=== PATIENT | female | born 1990 | race Caucasian/White ===

== ENCOUNTER 2022-08-24 14:12 | Emergency (ER) | payer OTHER ==
[~2022-08-24] VITALS: Ht 157.5 cm; Wt 69.9 kg
[~2022-08-24 14:12] MED LIST: ACET-503 PO; AMOX500C25 PO
[2022-08-24 14:26] VITALS: BP 132/75
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
[2022-08-24] MEDS ORDERED: ACETAMINOPHEN EXTRA STRENGTH 500 MG TAB PO ONE (14:55)
[2022-08-24] MEDS ORDERED: DICL100G5 TP (15:56)
[2022-08-24] MEDS ORDERED: ACET-10509 PO (15:56)
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
--- NOTE | 2022-08-24 16:16 | NUR ---
PT RETURNED FROM CT VIA WHEELCHAIR
[2022-08-24] MEDS ORDERED: AMOX200P9 PO (17:06)
[2022-08-24] MEDS ORDERED: ACET-8386 PO (17:06)
--- NOTE | 2022-08-24 17:10 | NUR ---
pt's jaw and head wrapped with 3" marleni wrap
[2022-08-24 18:00] VITALS: BP 121/72
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
== END 2022-08-24 18:11 | disposition home or self-care (01) ==
LOC: MED 14:12
DX: S02.609A Fracture of mandible, unspecified, initial encounter for closed fracture (principal); G43.909 Migraine, unspecified, not intractable, without status migrainosus; Z79.1 Long term (current) use of non-steroidal anti-inflammatories (NSAID); Y04.8XXA Assault by other bodily force, initial encounter; Y93.89 Activity, other specified; Y92.89 Other specified places as the place of occurrence of the external cause; Y99.8 Other external cause status
CPT/HCPCS: 70110; 70486; 90471; 90715; 99284

== ENCOUNTER 2023-07-09 09:53 | Emergency (ER) | payer OTHER ==
[~2023-07-09] VITALS: Ht 160 cm; Wt 65.8 kg
[~2023-07-09 09:53] MED LIST changes: +ACET-10509 PO; +ACET-8905 PO; +AMOX200P9 PO; +DICL100G5 TP
[2023-07-09 10:19] VITALS: BP 111/68; PULSE 61; RESP 16; TEMP 98.8; O2SAT 99
[2023-07-09] MEDS ORDERED: methocarbamoL 500 MG TAB PO ONE (11:10)
[2023-07-09] MEDS ORDERED: HYDROcodone/APAP 5/325 MG 1 TAB TAB PO ONE (11:10)
[2023-07-09] MEDS ORDERED: METH-1681 PO (13:26)
[2023-07-09] MEDS ORDERED: ACET-10509 PO (13:26)
[2023-07-09 13:50] VITALS: BP 115/64; PULSE 74; RESP 17; O2SAT 98
== END 2023-07-09 13:50 | disposition home or self-care (01) ==
LOC: MED 09:53
DX: M54.50 Low back pain, unspecified (principal); Z79.899 Other long term (current) drug therapy; Z88.6 Allergy status to analgesic agent
CPT/HCPCS: 81002; 81025; 99283

== ENCOUNTER 2023-11-06 16:11 | Emergency (ER) | payer OTHER ==
[~2023-11-06] VITALS: Ht 160 cm; Wt 68.0 kg
[~2023-11-06 16:11] MED LIST changes: +DICL100G32 TP; -DICL100G5 TP; +METH-1681 PO
[2023-11-06 16:20] VITALS: BP 116/67; PULSE 74; RESP 18; TEMP 98.8; O2SAT 100
[2023-11-06] MEDS ORDERED: FAMOTIDINE 20 MG/2 ML VIAL IVP ONE (17:00)
[2023-11-06] MEDS ORDERED: METOCLOPRAMIDE 10 MG/2 ML INJ VIAL IVP ONE (17:00)
[2023-11-06] MEDS ORDERED: NACL 0.9% 1,000 ML IV SCH (17:00)
[2023-11-06] MEDS ORDERED: diphenhydrAMINE 50 MG/ML VIAL IVP ONE ×3 (17:00→18:15)
[2023-11-06 17:38] LABS: BASOPHILS % (AUTO) 0.1 % (0.0-2.0); HEMATOCRIT 41.9 % (36-48); HEMOGLOBIN 14.3 g/dL (12.0-16.0); LYMPHOCYTES # (AUTO) 0.4 K/uL (2.5-16.5); LYMPHOCYTES % (AUTO) 3.7 % (20.5-51.1); MEAN CORPUSCULAR HEMOGLOBIN 31 pg (27-31); MEAN CORPUSCULAR HGB CONC 34 g/dL (33-37); MEAN CORPUSCULAR VOLUME 90.9 fL (80-94); MONOCYTES # (AUTO) 0.3 K/uL (0.8-1.0); MONOCYTES % (AUTO) 2.4 % (1.7-9.3); NEUTROPHILS # (AUTO) 11.2 K/uL (1.8-7.7); NEUTROPHILS % (AUTO) 93.8 % (42.2-75.2); PLATELET COUNT (AUTO) 322 K/uL (140-450); RED BLOOD CELL COUNT(AUTO) 4.61 MIL/uL (4.20-5.40); RED CELL DISTRIBUTION WIDTH 12.5 % (11.6-13.7)
[2023-11-06 17:52] LABS: ANION GAP 12.9 (8-16); CALCIUM 8.8 mg/dL (8.5-10.1); CARBON DIOXIDE 27.6 mmol/L (21-32); CREATININE 0.8 mg/dL (0.6-1.3); POTASSIUM 3.5 mmol/L (3.5-5.1)
[2023-11-06 17:59] LABS: ALBUMIN 4.3 g/dL (3.4-5.0); BILIRUBIN,DIRECT 0.2 mg/dL (0.0-0.3); TOTAL PROTEIN, SERUM 9.4 g/dL (6.4-8.2)
[2023-11-06] MEDS ORDERED: LORazepam 2 MG/ML VIAL IVP ONE (18:00)
[2023-11-06 18:43] LABS: APPEARANCE,URINE SL CLOUDY (CLEAR); BILIRUBIN,URINE NEGATIVE (NEGATIVE); BLOOD, URINE TRACE-I (NEGATIVE); COLOR,URINE YELLOW (YELLOW); LEUKOCYTE ESTERASE ,URINE NEGATIVE (NEGATIVE); NITRITE, URINE NEGATIVE (NEGATIVE); PROTEIN,URINE TRACE (NEGATIVE); UGLUCOSE NEGATIVE (NEGATIVE); UROBILINOGEN,URINE 0.2 EU/dL (0.2 - 1)
[2023-11-06 18:47] LABS: BACTERIA,URINE 0-2 /HPF (None Seen); MUCUS,URINE None Seen /LPF (None Seen); RBC,URINE 0-5 /HPF (0-5); SQUAMOUS EPITHELIAL CELL,UR 4-10 (MOD) /LPF (0-3 (FEW)); WBC,URINE 0 /HPF (0-5)
[2023-11-06] MEDS ORDERED: LOPE-231 PO (19:11)
[2023-11-06] MEDS ORDERED: FAMO-90 PO (19:11)
[2023-11-06] MEDS ORDERED: ONDA-188 SL (19:11)
[2023-11-06 19:50] VITALS: BP 116/67; PULSE 74; RESP 18; TEMP 98.8; O2SAT 100
== END 2023-11-06 19:50 | disposition home or self-care (01) ==
LOC: MED 16:11
DX: R11.10 Vomiting, unspecified (principal); R19.7 Diarrhea, unspecified; R10.13 Epigastric pain; Z88.5 Allergy status to narcotic agent; Z79.899 Other long term (current) drug therapy
CPT/HCPCS: 36415; 80048; 80076; 81001; 81025; 83690; 84703; 85025; 96361; 96374; 96375; 96376; 99284; J1200; J2060; J2765; J3490; J7030

== ENCOUNTER 2024-02-01 04:53 | Emergency (ER) | payer OTHER ==
[~2024-02-01] VITALS: Ht 157.5 cm; Wt 75.3 kg
[~2024-02-01 04:53] MED LIST changes: +FAMO-90 PO; +LOPE-231 PO; +ONDA-188 SL
[2024-02-01 05:04] VITALS: BP 120/79; PULSE 62; RESP 16; TEMP 98.5; O2SAT 100
[2024-02-01] MEDS ORDERED: ACET-10509 PO (06:36)
[2024-02-01] MEDS: ACETAMINOPHEN EXTRA STRENGTH 500 MG TAB PO ONE (06:40)
== END 2024-02-01 08:37 | disposition home or self-care (01) ==
LOC: MED 04:53
DX: S83.91XA Sprain of unspecified site of right knee, initial encounter (principal); Z79.899 Other long term (current) drug therapy; Z88.6 Allergy status to analgesic agent; X58.XXXA Exposure to other specified factors, initial encounter; Y93.39 Activity, other involving climbing, rappelling and jumping off; Y92.89 Other specified places as the place of occurrence of the external cause; Y99.0 Civilian activity done for income or pay
CPT/HCPCS: 73562; 99283; Q0092

== ENCOUNTER 2024-03-08 12:01 | Emergency (ER) | payer OTHER ==
[~2024-03-08] VITALS: Ht 157.5 cm; Wt 68.0 kg
[~2024-03-08 12:01] MED LIST changes: -LOPE-231 PO; +[UNRECOGNIZED DRUG - CODE] PO
[2024-03-08 12:29] VITALS: BP 119/86; PULSE 71; RESP 18; TEMP 98.7; O2SAT 99
[2024-03-08] MEDS ORDERED: ONDA-188 SL (13:08)
[2024-03-08] MEDS: ONDANSETRON 4 MG ODT PO ONE (13:18)
[2024-03-08 14:45] LABS: FLU A ANTIGEN negative (NEGATIVE); FLU B ANTIGEN negative (NEGATIVE)
[2024-03-08 15:06] VITALS: BP 141/65; PULSE 85; RESP 18; TEMP 98.3; O2SAT 99
== END 2024-03-08 15:06 | disposition home or self-care (01) ==
LOC: MED 12:01
DX: A08.4 Viral intestinal infection, unspecified (principal); Z20.822 Contact with and (suspected) exposure to COVID-19; Z79.1 Long term (current) use of non-steroidal anti-inflammatories (NSAID); Z79.2 Long term (current) use of antibiotics; Z79.899 Other long term (current) drug therapy; Z88.6 Allergy status to analgesic agent
CPT/HCPCS: 87426; 87804; 99283; Q0162

== ENCOUNTER 2024-03-14 07:50 | Emergency (ER) | payer OTHER ==
[~2024-03-14] VITALS: Ht 167.6 cm; Wt 68.0 kg
[2024-03-14 07:55] VITALS: BP 113/72; PULSE 58; RESP 18; TEMP 98.6; O2SAT 100
[2024-03-14] MEDS: NACL 0.9% 1,000 ML IV SCH (08:36)
[2024-03-14] MEDS: METOCLOPRAMIDE 10 MG/2 ML INJ VIAL IVP ONE (08:36)
[2024-03-14 09:10] LABS: BASOPHILS # (AUTO) 0.1 K/uL (0.00-0.22); BASOPHILS % (AUTO) 0.8 % (0.0-2.0); EOSINOPHILS # (AUTO) 0.1 K/uL (0-0.4); EOSINOPHILS % (AUTO) 1.8 % (0.0-4.0); HEMATOCRIT 38.9 % (36-48); HEMOGLOBIN 13.4 g/dL (12.0-16.0); LYMPHOCYTES # (AUTO) 1.6 K/uL (2.5-16.5); LYMPHOCYTES % (AUTO) 25.3 % (20.5-51.1); MEAN CORPUSCULAR HEMOGLOBIN 31 pg (27-31); MEAN CORPUSCULAR HGB CONC 34 g/dL (33-37); MEAN CORPUSCULAR VOLUME 90.3 fL (80-94); MONOCYTES # (AUTO) 0.6 K/uL (0.8-1.0); MONOCYTES % (AUTO) 9.1 % (1.7-9.3); NEUTROPHILS # (AUTO) 3.9 K/uL (1.8-7.7); PLATELET COUNT (AUTO) 349 K/uL (140-450); RED BLOOD CELL COUNT(AUTO) 4.31 MIL/uL (4.20-5.40); RED CELL DISTRIBUTION WIDTH 12.5 % (11.6-13.7); WHITE BLOOD COUNT (AUTO) 6.2 K/uL (4.8-10.8)
[2024-03-14 09:14] LABS: ANION GAP 10.8 (8-16); CALCIUM 8.5 mg/dL (8.5-10.1); CREATININE 0.8 mg/dL (0.6-1.3); POTASSIUM 3.8 mmol/L (3.5-5.1)
[2024-03-14 09:18] LABS: ALBUMIN 4.1 g/dL (3.4-5.0); BILIRUBIN,DIRECT 0.1 mg/dL (0.0-0.3); TOTAL BILIRUBIN 0.3 mg/dL (0.0-1.0); TOTAL PROTEIN, SERUM 7.7 g/dL (6.4-8.2)
[2024-03-14 09:22] LABS: BILIRUBIN,URINE NEGATIVE (NEGATIVE); BLOOD, URINE 3+ (NEGATIVE); COLOR,URINE YELLOW (YELLOW); LEUKOCYTE ESTERASE ,URINE 1+ (NEGATIVE); NITRITE, URINE NEGATIVE (NEGATIVE); PROTEIN,URINE NEGATIVE (NEGATIVE); UGLUCOSE NEGATIVE (NEGATIVE); UROBILINOGEN,URINE 0.2 EU/dL (0.2 - 1)
[2024-03-14 09:57] LABS: APPEARANCE,URINE HAZY (CLEAR)
[2024-03-14 10:02] LABS: BACTERIA,URINE FEW /HPF (None Seen); RBC,URINE 20-50 /HPF (0-5)
[2024-03-14 10:03] LABS: SQUAMOUS EPITHELIAL CELL,UR 4-10 (MOD) /LPF (0-3 (FEW))
== END 2024-03-14 09:04 | disposition left against medical advice (07) ==
LOC: MED 07:50
DX: R10.13 Epigastric pain (principal); R10.10 Upper abdominal pain, unspecified; R11.2 Nausea with vomiting, unspecified; Z79.1 Long term (current) use of non-steroidal anti-inflammatories (NSAID); Z79.2 Long term (current) use of antibiotics; Z79.899 Other long term (current) drug therapy; Z88.6 Allergy status to analgesic agent
CPT/HCPCS: 36415; 80048; 80076; 81001; 83690; 85025; 87086; 96361; 96374; 99283; J2765; J7030

== ENCOUNTER 2024-05-13 09:41 | Emergency (ER) | payer OTHER ==
[~2024-05-13] VITALS: Ht 157.5 cm; Wt 65.8 kg
[2024-05-13 09:49] VITALS: BP 113/42; PULSE 61; RESP 18; TEMP 97.7; O2SAT 100
[2024-05-13] MEDS ORDERED: ACET-503 PO (11:31)
== END 2024-05-13 12:08 | disposition home or self-care (01) ==
LOC: MED 09:41
DX: M25.761 Osteophyte, right knee (principal); Z79.899 Other long term (current) drug therapy; Z88.6 Allergy status to analgesic agent
CPT/HCPCS: 73562; 99283

== ENCOUNTER 2024-05-17 17:17 | Emergency (ER) | payer OTHER ==
[~2024-05-17] VITALS: Ht 157.5 cm; Wt 70.0 kg
[2024-05-17 17:34] VITALS: BP 121/69; PULSE 60; RESP 20; TEMP 98.2; O2SAT 99
[2024-05-17] MEDS ORDERED: ACET-10509 PO (18:06)
== END 2024-05-17 18:15 | disposition home or self-care (01) ==
LOC: MED 17:17
DX: G89.29 Other chronic pain (principal); M25.561 Pain in right knee; Z02.79 Encounter for issue of other medical certificate; Z79.2 Long term (current) use of antibiotics; Z79.1 Long term (current) use of non-steroidal anti-inflammatories (NSAID); Z79.899 Other long term (current) drug therapy; Z88.6 Allergy status to analgesic agent
CPT/HCPCS: 99282